=== PATIENT | female | born 1990 | race Caucasian/White ===

== ENCOUNTER 2017-04-22 12:31 | Emergency (ER) | END 2017-04-22 14:48 | disposition home or self-care (01) ==

== ENCOUNTER 2017-05-04 22:59 | Emergency (ER) | END 2017-05-05 03:24 | disposition home or self-care (01) ==

== ENCOUNTER 2017-06-15 16:06 | Emergency (ER) | END 2017-06-15 20:45 | disposition left against medical advice (07) ==

== ENCOUNTER 2017-07-23 18:16 | Emergency (ER) | END 2017-07-23 22:34 | disposition home or self-care (01) ==

== ENCOUNTER 2017-10-08 16:43 | Outpatient (CLI) | END 2017-10-08 22:22 | disposition home or self-care (01) ==

== ENCOUNTER 2017-10-26 23:52 | Inpatient (IN) | END 2017-10-27 13:00 | disposition home or self-care (01) | DRG 782 ==

== ENCOUNTER 2017-11-06 21:18 | Outpatient (CLI) | END 2017-11-07 00:59 | disposition home or self-care (01) ==

== ENCOUNTER 2017-12-18 10:22 | Emergency (ER) | END 2017-12-18 11:49 | disposition home or self-care (01) ==

== ENCOUNTER 2018-04-02 18:52 | Emergency (ER) | END 2018-04-02 22:31 | disposition home or self-care (01) ==

== ENCOUNTER 2018-08-16 10:55 | Emergency (ER) | payer MEDICAID ==
[~2018-08-16] VITALS: Ht 165.1 cm; Wt 80.0 kg
[~2018-08-16 10:55] MED LIST: ACET500C5 PO; AMOX500C2 PO; GUAI-637 PO; IBUP-1542 PO; PREN1TAB17 PO; SODI126M NASAL
[2018-08-16 10:57] VITALS: Ht 165.1 cm; Wt 80.0 kg
[2018-08-16] MEDS ORDERED: CLIN300C10 PO (11:46)
[2018-08-16] MEDS ORDERED: HYDR-4011 PO (11:46)
[2018-08-16] MEDS ORDERED: KETOROLAC 30 MG INJ IV STA (11:54)
[2018-08-16] MEDS ORDERED: HYDROCODONE/APAP (7.5/325) TAB PO ONE (12:00)
[2018-08-16] MEDS ORDERED: CEFTRIAXONE 1 GM INJ IM ONE (12:00)
[2018-08-16] MEDS ORDERED: CLINDAMYCIN 600 MG/D5W (PMX) 50 ML IVPB SCH (12:00)
[2018-08-16] MEDS ORDERED: CLINDAMYCIN 300 MG CAP PO ONE (12:00)
[2018-08-16] MEDS ORDERED: LIDOCAINE 1% (MDV) 20 ML INJ SC ONE (12:00)
[2018-08-16] MEDS ORDERED: ONDANSETRON 4 MG INJ IV STA (12:52)
[2018-08-16] MEDS ORDERED: SOD CHLORIDE 0.9% 1,000 ML IV STA (12:52)
[2018-08-16] MEDS ORDERED: morphine 4 MG/ML VIAL IV STA (12:52)
[2018-08-16] MEDS ORDERED: SOD CHLORIDE 0.9% 100 ML ONE (13:28)
[2018-08-16] MEDS ORDERED: IOHEXOL 300MG/ML 150 ML BTL ONE (13:28)
--- NOTE | 2018-08-16 15:27 | ERD ---
ER Documentation Chief Complaint Chief Complaint pt is bib friend with c/o left facial swelling s/p wisdom teeth removal HPI 28-year-old female brought in by friend with complaints of left-sided facial swelling x2 days. Patient notes to have had her wisdom teeth extracted 3 days prior to presenting to the ED, presented to oral surgeon 2 days ago and was placed on penicillin for swelling. Also notes that complete removal of wisdom teeth not successful and oral surgeon left the room in place due to proximity to nerve root. Since use of penicillin swelling has increased causing pain to the affected area as well as headache. Patient notes difficulty speaking due to swelling, however, denies wheezing or shortness of breath. Patient admits to fever yesterday of 101F for which she has been using motrin with her last dose last night. Patient notes to have follow-up with oral surgeon later this afternoon, however, states pain and swelling so severe did not want to wait. ROS All systems reviewed and are negative except as per history of present illness. Medications Home Meds Active Scripts Hydrocodone/Acetaminophen (Economy 5-325 Tablet) 1 Each Tablet, 1 TAB PO Q6H PRN for PAIN, #7 TAB Prov:SHARRI TAYLOR PA-C 08/16/18 Clindamycin Hcl* (Clindamycin Hcl*) 300 Mg Capsule, 300 MG PO QID for 10 Days, CAP Prov:SHARRI TAYLOR PA-C 08/16/18 Sodium Chloride (Saline Nasal Mist) 126 Ml Mist, 2 SPRAY NASAL Q2H PRN for NASAL CONGESTION, #1 BOTTLE Prov:HEATHER MALDONADO NP 04/02/18 Guaifenesin* (Robitussin*) 100 Mg/5 Ml Syrup, 200 MG PO Q4H PRN for COUGH, #120 ML Prov:HEATHER MALDONADO NP 04/02/18 Acetaminophen* (Tylophen*) 500 Mg Capsule, 1 CAP PO Q6H PRN for PAIN AND OR ELEVATED TEMP, #20 CAP Prov:HEATHER MALDONADO NP 04/02/18 Amoxicillin* (Amoxicillin*) 500 Mg Cap, 500 MG PO TID for 10 Days, CAP Prov:YUE FRYE MD 12/18/17 Ibuprofen* (Motrin*) 600 Mg Tab, 600 MG PO Q6, #15 TAB Prov:YUE FRYE MD 12/18/17 Reported Medications Vit-Iron Fumarate-FA ( Tablet) 1 Each Tablet, 1 EACH PO DAILY 09/28/12 Allergies Allergies: Coded Allergies: No Known Drug Allergy (Verified Allergy, Mild, 12/18/17) PMhx/Soc History of Surgery: Yes ( X4, WISDOM TOOTH SX ) Anesthesia Reaction: No Hx Neurological Disorder: No Hx Respiratory Disorders: No Hx Cardiac Disorders: No Hx Psychiatric Problems: No Hx Miscellaneous Medical Probl: No Hx Alcohol Use: No Hx Substance Use: No Hx Tobacco Use: No Smoking Status: Never smoker Physical Exam Vitals Vital Signs Date Temp Pulse Resp B/P (MAP) Pulse Ox O2 O2 Flow FiO2 Time Delivery Rate 08/16/18 97.9 81 18 107/67 100 Room Air 16:01 (80) 08/16/18 98.5 80 20 115/66 100 Room Air 12:55 (82) 08/16/18 98.3 91 18 130/74 100 10:57 (92) Physical Exam Const: Well developed. Well nourished. Head/Eyes: Atraumatic. Normocephalic. PERRL. EOMI ENT: Normal External Ears, Nose. Unable to fully visualize oral cavity due to edema of the left lower mandible and pain with manipulation of the oral cavity. Tenderness to palpation along the left mandible and submandibular lymph nodes, with warmth, erythema and induration. No fluctuance. Patient drooling. Neck: Full range of motion. No meningismus. Resp: Clear to auscultation bilaterally. No respiratory distress. No audible stridor. Patient able to speak full sentences. No accessory muscle use, no tripoding. Cardio: Regular rate and rhythm. No murmurs, rubs, or gallops. Ext: No cyanosis, or edema Neur: Awake and alert Psych: Normal Mood and Affect Result Diagram: 08/16/18 1201 08/16/18 1201 Results 24 hrs Laboratory Tests Test 08/16/18 12:01 White Blood Count 8.0 10^3/ul Red Blood Count 4.46 10^6/ul Hemoglobin 12.8 g/dl Hematocrit 39.2 % Mean Corpuscular Volume 87.9 fl Mean Corpuscular Hemoglobin 28.7 pg Mean Corpuscular Hemoglobin Concent 32.7 g/dl Red Cell Distribution Width 12.5 % Platelet Count 210 10^3/UL Mean Platelet Volume 10.2 fl Immature Granulocytes % 0.400 % Neutrophils % 70.2 % Lymphocytes % 20.9 % Monocytes % 7.8 % Eosinophils % 0.4 % Basophils % 0.3 % Nucleated Red Blood Cells % 0.0 /100WBC Immature Granulocytes # 0.030 10^3/ul Neutrophils # 5.6 10^3/ul Lymphocytes # 1.7 10^3/ul Monocytes # 0.6 10^3/ul Eosinophils # 0.0 10^3/ul Basophils # 0.0 10^3/ul Nucleated Red Blood Cells # 0.0 10^3/ul Sodium Level 140 mmol/L Potassium Level 4.0 mmol/L Chloride Level 105 mmol/L Carbon Dioxide Level 26 mmol/L Anion Gap 9 Blood Urea Nitrogen 11 mg/dl Creatinine 0.68 mg/dl Est Glomerular Filtrat Rate mL/min > 60 mL/min Glucose Level 96 mg/dl Calcium Level 9.7 mg/dl Current Medications Medications Dose Sig/Serjio Start Time Status Last (Trade) Ordered Route PRN Stop Time Admin Dose Reason Admin Ceftriaxone 1 gm ONCE ONCE 08/16/18 DC Sodium IM 12:00 (Rocephin) 08/16/18 12:00 Clindamycin 300 mg ONCE ONCE 08/16/18 DC HCl PO 12:00 (Cleocin) 08/16/18 12:00 1 tab ONCE ONCE 08/16/18 DC Acetaminophen PO 12:00 / 08/16/18 12:00 Hydrocodone Bitart (Economy (7.5-325)) Lidocaine 20 ml ONCE ONCE 08/16/18 DC (Xylocaine SC 12:00 1% (Mdv) 20 08/16/18 12:00 ml) Clindamycin 50 ml @ 50 ONCE IVPB 08/16/18 DC 08/16/18 HCl/ mls/hr 12:00 12:16 Dextrose 08/16/18 12:59 Ketorolac 30 mg ONCE STAT 08/16/18 DC 08/16/18 Tromethamine IV 11:54 12:16 (Toradol) 08/16/18 11:56 Sodium 1,000 ml @ Q1H STAT 08/16/18 DC 08/16/18 Chloride 1,000 mls/hr IV 12:52 12:57 08/16/18 13:51 Morphine 4 mg ONCE STAT 08/16/18 DC 08/16/18 Sulfate IV 12:52 12:58 (morphine) 08/16/18 12:54 Ondansetron 4 mg ONCE STAT 08/16/18 DC 08/16/18 HCl (Zofran IV 12:52 12:58 Inj) 08/16/18 12:54 Iohexol 150 ml STK-MED 08/16/18 DC (Omnipaque ONCE .ROUTE 13:28 300mg/ ml) 08/16/18 13:29 Sodium 100 ml @ ud STK-MED 08/16/18 DC Chloride ONCE .ROUTE 13:28 08/16/18 13:29 Procedures/MDM IMAGING: CT scan of the neck with contrast. CLINICAL INDICATION: Left facial swelling status post recent recent wisdom tooth removal. FINDINGS: There is localized left facial soft tissue swelling and subcutaneous fatty infiltration. There is asymmetric enlargement of the left masseter muscle with overlying subcutaneous fatty infiltration. There is no organized fluid collection to suggest abscess. There are a few mildly enlarged regional lymph nodes. There is no soft tissue emphysema. Deep soft tissue edema extends into the bilateral submandibular spaces. There is no airway compromise. The oropharynx, hypopharynx, larynx, and trachea are unremarkable. No airway compromise is seen. The mucosal space of the airway is clear. The tonsillar pillars are normal. The deep spaces of the suprahyoid neck are symmetric and normal. No mass is identified. The parotid glands, submandibular glands, and thyroid gland are all normal. Imaging obtained through the lung apices revealed no acute abnormality. The surrounding soft tissues and muscles are unremarkable as well. IMPRESSION: 1. Localized left facial soft tissue swelling with subcutaneous fatty infiltration in keeping with cellulitis. No organized fluid collection is identified to suggest abscess. Soft tissue edema extends into the bilateral submandibular spaces. 2. Asymmetric enlargement of the left masseter muscle with overlying subcutaneous infiltration suggesting myositis. No abscess. 3. Mildly enlarged regional lymph nodes. ED COURSE: Patient noted improvement in pain after administration of IV Morphine. On re-examination pt calm and in no acute distress. REEXAMINATION/REEVALUATION: Time: 15:30pm MEDICAL DECISION MAKING: This is an otherwise healthy 28-year-old female who presents with increased facial swelling x3 days status post wisdom teeth removal. This was discussed with Dr. Santiago, and patient also examined by Dr. Santiago. Patient started on Clindamycin 600mg IV for dental/soft tissue infection and morphine 4mg IV for pain while in ED. CT soft tissue with IV contrast negative for abscess and findings most consistent with facial cellulitis. CBC and BMP unremarkable with no elevated white count. Patient reevaluated by myself and course of action discussed with Dr. Santiago who agreed pt stable for discharge at this time with prescription for Clindamycin and Economy for pain. Pt CURES negative for recent opioid use and is not considered at risk for opioid overdose. Counseled regarding opioid use and advised should be used for the shortest duration possible. Pt advised to follow-up with oral surgeon as soon as possible - within next 24hrs if possible and counseled regarding strict ED return precautions. Pt is to return to the ED immediately if swelling increases, fever develops, or any signs of airway compromise present. At this time pt stable for discharge with precautionary instructions and outpatient follow-up as discussed. Both pt and friend expressed verbal understanding and agreement to treatment plan. All questions addressed and answered. Departure Diagnosis: Primary Impression: Cellulitis of face Additional Impression: Status post wisdom tooth extraction Condition: Stable Patient Instructions: Dental Abscess W/ Facial Cellulitis KIERSTEN SANTIAGO MD August 16, 2018 15:27 SHARRI TAYLOR PA-C August 16, 2018 21:07
[2018-08-16 16:01] VITALS: BP 107/67; PULSE 81; RESP 18
== END 2018-08-16 16:12 | disposition home or self-care (01) ==
LOC: FTE 10:55
DX: L03.211 Cellulitis of face (principal); Z98.818 Other dental procedure status
CPT/HCPCS: 70491; 80048; 85025; 96361; 96365; 96375; J1885; J2270; J2405; J7030; Q9967; Z7502; Z7610